=== PATIENT | female | born 1985 | race Hispanic/Latino ===

== ENCOUNTER 2018-12-31 20:56 | Emergency (ER) | payer OTHER, BC ==
[2018-12-31 21:35] LABS: APPEARANCE,URINE Clear (CLEAR); BILIRUBIN,URINE Negative (NEGATIVE); COLOR,URINE Yellow (YELLOW); GLUCOSE, URINE (UA) Negative (NEGATIVE); KETONES,URINE 15 mg/dL (NEGATIVE); LEUKOCYTE ESTERASE ,URINE Trace (NEGATIVE); NITRATE,URINE Negative (NEGATIVE); OCCULT BLOOD,URINE Moderate (NEGATIVE); PH,URINE 6.5 (5.0-8.0); PROTEIN,URINE Negative (NEGATIVE)
[2018-12-31 21:37] LABS: BASOPHILS % (AUTO) 0.6 % (0.0-5.0); EOSINOPHILS % (AUTO) 1.9 % (0.0-8.0); HEMATOCRIT 40.5 % (36-48); LYMPHOCYTES % (AUTO) 23.8 % (21.0-51.0); MEAN CORPUSCULAR HEMOGLOBIN 29.5 pg (27.0-33.0); MEAN CORPUSCULAR HGB CONC 35.3 g/dL (32.0-36.0); MEAN CORPUSCULAR VOLUME 83.5 fL (79-99); MONOCYTES % (AUTO) 7.8 % (3.0-13.0); NEUTROPHILS % (AUTO) 65.9 % (40.0-77.0); NUCLEATED RED BLOOD CELLS 0.1 % (0.0-0.19); PLATELET COUNT (AUTO) 407 K/uL (130-400); RED BLOOD CELL COUNT(AUTO) 4.85 MIL/uL (4.00-5.50); RED CELL DISTRIBUTION WIDTH 12.9 % (11.0-15.5); WHITE BLOOD COUNT (AUTO) 10.8 K/uL (4.8-10.8)
[2018-12-31 21:38] LABS: HCG,QUAL RESULT NEGATIVE (NEGATIVE)
[2018-12-31 21:45] LABS: BACTERIA,URINE Few /HPF (None Seen); MUCUS,URINE Few LPF (None Seen); SQUAMOUS EPITHELIAL CELL,UR Moderate /HPF (0-2)
[2018-12-31 22:07] LABS: CREATININE 0.6 mg/dL (0.5-1.5); POTASSIUM 4.3 mmol/L (3.5-5.1)
[2018-12-31] MEDS ORDERED: ONDANSETRON HCL 4 MG/2 ML VIAL ONE (22:08)
[2018-12-31] MEDS ORDERED: TAMSULOSIN HCL 0.4 MG CAP.ER.24H ONE (22:09)
[2018-12-31] MEDS ORDERED: KETOROLAC TROMETHAMINE 30MG/ML ONE (22:09)
[2018-12-31 22:11] LABS: ALBUMIN 3.8 g/dL (3.5-5.0); BILIRUBIN,TOTAL 0.7 mg/dL (0.2-1.0); TOTAL PROTEIN, SERUM 8.3 g/dL (6.0-8.3)
[2018-12-31] MEDS ORDERED: METOCLOPRAMIDE 10 MG/2 ML VIAL ONE (22:40)
[2018-12-31] MEDS ORDERED: DiphenhydrAMINE HCL 50 MG/ML VIAL ONE (22:41)
== END 2018-12-31 23:12 | disposition home or self-care (01) ==
LOC: EDH 20:56
DX: N23 Unspecified renal colic (principal); E86.9 Volume depletion, unspecified; R11.2 Nausea with vomiting, unspecified; Z90.49 Acquired absence of other specified parts of digestive tract
CPT/HCPCS: 36415; 74176; 80053; 81001; 81025; 82550; 83690; 85025; 96361; 96374; 96375; 99285; J1200; J1885; J2405; J2765

== ENCOUNTER 2024-01-29 18:27 | Inpatient (IN) | payer BC, OTHER ==
[~2024-01-29 18:27] MED LIST: AMOX1TAB16 PO
[2024-01-29] MEDS ORDERED: MAG/ALUM/SIMETH 30 ML UDCUP PO PRN (20:00)
[2024-01-29] MEDS ORDERED: FAMOTIDINE 20MG VIAL IV PRN (20:00)
[2024-01-29] MEDS ORDERED: ACETAMINOPHEN 325 MG TAB PO PRN ×2 (20:00)
[2024-01-29] MEDS ORDERED: NITROGLYCERIN 0.4 MG SL TAB SL PRN (20:00)
[2024-01-29] MEDS ORDERED: LACTULOSE 20 GM/30 ML UDCUP PO PRN (20:00)
[2024-01-29] MEDS ORDERED: GUAIFENESIN-DM 200/20 MG 10 ML PO PRN (20:00)
[2024-01-29] MEDS ORDERED: ZOLPIDEM TARTRATE 5 MG TAB PO PRN (20:00)
[2024-01-29] MEDS ORDERED: HYDRALAZINE 20MG/ML VIAL IV PRN (20:00)
[2024-01-29] MEDS ORDERED: IBUPROFEN 600 MG TABLET PO PRN (20:00)
[2024-01-29] MEDS ORDERED: TRAMADOL HCL 50 MG TABLET PO PRN (20:00)
[2024-01-29 20:36] LABS: BASOPHILS # (AUTO) 0.04 K/uL (0.00-0.20); BASOPHILS % (AUTO) 0.3 % (0.0-5.0); HEMATOCRIT 33.8 % (36-48); IMMATURE GRANULOCYTE ABSOLUTE 0.06 K/uL (0-1); LYMPHOCYTES # (AUTO) 0.9 K/uL (1.0-4.8); LYMPHOCYTES % (AUTO) 6.6 % (21.0-51.0); MEAN CORPUSCULAR HEMOGLOBIN 29.1 pg (27.0-33.0); MEAN CORPUSCULAR VOLUME 85.6 fL (79-99); MONOCYTES # (AUTO) 0.9 K/uL (0.1-1.0); MONOCYTES % (AUTO) 6.6 % (3.0-13.0); NEUTROPHILS # (AUTO) 11.3 K/uL (1.8-7.7); PLATELET COUNT (AUTO) 299 K/uL (130-400); RED BLOOD CELL COUNT(AUTO) 3.95 MIL/uL (4.00-5.50); RED CELL DISTRIBUTION WIDTH 12.8 % (11.0-15.5); WHITE BLOOD COUNT (AUTO) 13.1 K/uL (4.8-10.8)
[2024-01-29 20:50] LABS: INR <= 0.93 (0.85-1.15); PROTHROMBIN TIME 10.9 SEC (9.6-11.6)
[2024-01-29] MEDS: INSULIN HUMULIN R 100 UNIT/ML 3ML SQ SCH (21:00)
[2024-01-29 21:13] LABS: AMMONIA 14 umol/L (11-32); CREATINE KINASE, TOTAL 46 U/L (21-232)
[2024-01-29] MEDS: FAMOTIDINE 20MG VIAL IV SCH (21:39)
[2024-01-29] MEDS: HEPARIN 5,000 UNIT VIAL SQ SCH (21:40)
[2024-01-29] MEDS: 0.9%NACL 1000ML 1,000 ML IV SCH (21:40)
[2024-01-29] MEDS: ZOSYN 3.375GM+NS 50ML 50 ML IV SCH (21:41)
[2024-01-30] VITALS (22 sets, daily range): BP systolic 96–122; BP diastolic 58–82; PULSE 76–105; RESP 15–20; O2SAT 100
[2024-01-30] MEDS: MORPHINE 2 MG SYG IVP PRN (02:11)
[2024-01-30 04:46] LABS: BASOPHILS # (AUTO) 0.05 K/uL (0.00-0.20); BASOPHILS % (AUTO) 0.4 % (0.0-5.0); EOSINOPHILS % (AUTO) 0.8 % (0.0-8.0); HEMATOCRIT 32.4 % (36-48); IMMATURE GRANULOCYTE ABSOLUTE 0.05 K/uL (0-1); LYMPHOCYTES # (AUTO) 2.5 K/uL (1.0-4.8); MEAN CORPUSCULAR HEMOGLOBIN 29.1 pg (27.0-33.0); MEAN CORPUSCULAR HGB CONC 33.6 g/dL (32.0-36.0); MEAN CORPUSCULAR VOLUME 86.4 fL (79-99); MONOCYTES # (AUTO) 1.1 K/uL (0.1-1.0); MONOCYTES % (AUTO) 9.2 % (3.0-13.0); NEUTROPHILS # (AUTO) 8.5 K/uL (1.8-7.7); NEUTROPHILS % (AUTO) 69.2 % (40.0-77.0); PLATELET COUNT (AUTO) 224 K/uL (130-400); RED BLOOD CELL COUNT(AUTO) 3.75 MIL/uL (4.00-5.50); RED CELL DISTRIBUTION WIDTH 12.7 % (11.0-15.5); WHITE BLOOD COUNT (AUTO) 12.3 K/uL (4.8-10.8)
[2024-01-30] MEDS: HYDROMORPHONE 0.5 MG SYG (0.5MG/0.5ML) IVP ONE (05:25)
[2024-01-30] MEDS: ONDANSETRON 4MG INJ IV PRN (05:25)
[2024-01-30 05:29] LABS: INR <= 0.93 (0.85-1.15); PROTHROMBIN TIME 10.9 SEC (9.6-11.6)
[2024-01-30 05:30] LABS: PARTIAL THROMBOPLASTIN TIME 24.5 SEC (26.3-35.5)
[2024-01-30 05:32] LABS: ALBUMIN 3.2 g/dL (3.5-5.0); BILIRUBIN,DIRECT 0.1 mg/dL (0.0-0.3); BILIRUBIN,TOTAL 0.6 mg/dL (0.2-1.0); CREATININE 0.9 mg/dL (0.5-1.0); MAGNESIUM 1.7 mg/dL (1.80-2.40); POTASSIUM 3.6 mmol/L (3.5-5.1)
[2024-01-30] MEDS: HYDROMORPHONE 0.5 MG SYG (0.5MG/0.5ML) ONE (06:56)
[2024-01-30 07:39] LABS: APPEARANCE,URINE CLEAR (CLEAR); BILIRUBIN,URINE NEGATIVE (NEGATIVE); COLOR,URINE LIGHT-YELLOW (YELLOW); GLUCOSE, URINE (UA) NEGATIVE (NEGATIVE); KETONES,URINE NEGATIVE (NEGATIVE); LEUKOCYTE ESTERASE ,URINE NEGATIVE Leu/uL (NEGATIVE); NITRATE,URINE NEGATIVE (NEGATIVE); PH,URINE 6.5 (5.0-8.0); PROTEIN,URINE NEGATIVE (NEGATIVE); UROBILINOGEN,URINE 0.2 mg/dL (0.2-1.0)
[2024-01-30 07:46] LABS: MUCUS,URINE RARE LPF (None Seen); SQUAMOUS EPITHELIAL CELL,UR FEW /HPF (0-2)
[2024-01-30] MEDS ORDERED: POTASSIUM CHLORIDE 20MEQ/100ML 100 ML IV PRN (10:00)
[2024-01-30] MEDS ORDERED: MAGNESIUM 2GM PREMIX 50ML 50 ML IV PRN (10:00)
[2024-01-30] MEDS ORDERED: POTASSIUM CHLORIDE 10% ELIXIR 20 MEQ/15 ML UDCUP PO PRN (10:00)
[2024-01-30] MEDS: TAMSULOSIN HCL 0.4 MG CAP.ER.24H PO ONE (11:42)
[2024-01-30] MEDS: LACTATED RINGERS 1000ML 1,000 ML IV ONE (12:07)
[2024-01-30] MEDS ORDERED: SUCCINYLCHOLINE CHLORIDE 20 MG/ML 10 ML VIAL ONE (12:41)
[2024-01-30] MEDS ORDERED: LIDOCAINE PF 100MG/5ML (2%) SYRINGE 5ML ONE (12:41)
[2024-01-30] MEDS: ONDANSETRON 4MG INJ ONE (12:42)
[2024-01-30] MEDS ORDERED: FENTANYL CITRATE PF 50 MCG/1 ML 2ML VIAL ONE (12:44)
[2024-01-30] MEDS ORDERED: MIDAZOLAM HCL 1 MG/ML 2ML VIAL ONE (12:44)
[2024-01-30] MEDS ORDERED: PROPOFOL 10 MG/ML 20ML VIAL IV ONE (12:44)
[2024-01-30] MEDS ORDERED: ROCURONIUM BROMIDE 10MG/1ML 5ML VL ONE (12:50)
[2024-01-30] MEDS: MEPERIDINE-PF 25 MG/ML SYG ONE (14:45)
[2024-01-30] MEDS: MAGNESIUM 2GM PREMIX 50ML 50 ML IV PRN (15:28)
[2024-01-30] MEDS: KCL 20 MEQ ERTAB PO PRN (16:42)
[2024-01-31] MEDS ORDERED: TAMSULOSIN HCL 0.4 MG CAP.ER.24H PO SCH (09:00)
== END 2024-01-30 18:11 | disposition home or self-care (01) | DRG 661 ==
LOC: 4DH 19:17
PROVIDERS: ADMIT Internal Medicine; ATTEND Internal Medicine
PROC: 0T768DZ Dilation of Right Ureter with Intraluminal Device, Via Natural or Artificial Opening Endoscopic (ICD-10-PCS; principal; 2024-01-30 14:00)
PROC: 0TC68ZZ Extirpation of Matter from Right Ureter, Via Natural or Artificial Opening Endoscopic (ICD-10-PCS; 2024-01-30 14:00)
DX: N13.6 Pyonephrosis (principal); K76.0 Fatty (change of) liver, not elsewhere classified; E05.00 Thyrotoxicosis with diffuse goiter without thyrotoxic crisis or storm; D64.9 Anemia, unspecified; Z90.49 Acquired absence of other specified parts of digestive tract; Z87.442 Personal history of urinary calculi
CPT/HCPCS: 36415; 71045; 74018; 76770; 80048; 80076; 81001; 81025; 82140; 82360; 82550; 83036; 83605; 83735; 83880; 84145; 85025; 85378; 85610; 85730; 87088; A4354; C1758; C1769; C1894; C2617; G0378; J0330; J1170; J1644; J2001; J2175; J2250; J2270; J2405; J2543; J2704; J3010; J3475; J3490; J7030; J7120; A4216; A4222; A4223; A4358; A4600; A4930; A6207

== ENCOUNTER → 2024-12-31 | Outpatient (CLI) | payer BC, OTHER ==
--- NOTE | 2024-12-31 16:59 | HMCIMG ---
US SOFT TISSUE UPPER BACK REASON: subcutaneous nodule of back. COMPARISON: None TECHNIQUE: Left upper back ultrasound study was performed. FINDINGS: There is soft tissue nodule in the upper back measuring 2.6 x 1 x 1.7 cm over the palpable region. Soft tissue neoplasm cannot be excluded. IMPRESSION: Findings as described above.
== END | disposition home or self-care (01) ==
LOC: RAH 15:12
PROVIDERS: ATTEND Family Medicine
DX: C49.6 Malignant neoplasm of connective and soft tissue of trunk, unspecified (principal); R22.2 Localized swelling, mass and lump, trunk
CPT/HCPCS: 76604

== ENCOUNTER → 2025-01-01 | Outpatient (CLI) | payer BC, OTHER ==
[~2025-01-01] MED LIST changes: -AMOX1TAB16 PO; +IOHEXOL 350 MG/ML 100ML INFUS..BTL IV ONE
--- NOTE | 2025-01-01 16:34 | HMCIMG ---
CT CHEST W/WO CONTRAST HISTORY: Soft tissue mass in the left upper back COMPARISON: None TECHNIQUE: Multiple sequential axial images of the chest were obtained from the thoracic inlet through upper abdomen. Patient was given 50 cc of Omnipaque through intravenous route. FINDINGS: In the left upper back, there is oval-shaped soft tissue mass measuring 2.7 x 1.7 cm may be related to soft tissue neoplasm located within the subcutaneous tissue. Tissue correlation may be helpful. There is no evidence of pulmonary nodule or parenchymal disease. No pleural effusion or pericardial effusion is seen. There is no evidence of pneumothorax. There are normal size mediastinal and hilar lymph nodes. The heart is not enlarged. Degenerative changes of the thoracolumbar spine are present. There is no evidence of adrenal nodule. IMPRESSION: 1. No evidence of pulmonary nodule or effusion is seen. CT was performed with one or more following dose reduction techniques: automated exposure control, adjustment of the mA and kv according to patient's size, or use of a iterative reconstruction technique.
== END | disposition home or self-care (01) ==
LOC: RAH 13:47
PROVIDERS: ATTEND Family Medicine
DX: R22.2 Localized swelling, mass and lump, trunk (principal); M79.89 Other specified soft tissue disorders; M47.815 Spondylosis without myelopathy or radiculopathy, thoracolumbar region
CPT/HCPCS: 71270; Q9967